=== PATIENT | male | born 1980 | race Caucasian/White ===

== ENCOUNTER 2017-01-22 14:57 | Emergency (ER) | payer OTHER ==
[~2017-01-22] VITALS: Ht 182.9 cm; Wt 74.8 kg
[~2017-01-22 14:57] MED LIST: ACETAMINOPHEN500 M1; AZITHROMYCIN250 MG PO; CLEOCIN HCL150 MG PO; CLEOCIN HCL300 MG PO; COMBIVENT RESPIM4 GM INH; ENDOCET 325 MG-1 TA1 PO; GOOD SENSE IBU200 MG PO; MOBIC 15MG15 MG PO; PERCOCET 325 MG1 TA2 PO; PERCOCET 325 MG1 TA3 PO; PROAIR HFA8.5 GM INH
[2017-01-22 15:01] VITALS: BP 138/90
--- NOTE | 2017-01-22 15:05 | ED THROAT/DENTAL COMPLAINT ---
History of Present Illness General Chief Complaint: Sore Throat, Dental Pain Stated Complaint: DENTAL PAIN Source: patient, old records Exam Limitations: no limitations Vital Signs & Intake/Output Vital Signs & Intake/Output Vital Signs Date Time Temp Pulse Resp B/P B/P Pulse O2 O2 Flow FiO2 Mean Ox Delivery Rate 01/22 1501 97.0 68 16 138/90 98 Room Air Allergies Coded Allergies: Penicillins (Severe, ANAPHALACTIC 07/30/16) Reconcile Medications Albuterol Sulfate (Proair Hfa) 0.09 MG/Actuation MARCOS 2 PUFF INH PRN COPD ( Reported) Azithromycin 250 MG TABLET 1 DP PO AD DENTAL (Reported) 2 the first day followed by 1 for days 2-5 Clindamycin HCl 300 MG CAPSULE 1 CAP PO TID dental CLINDAMYCIN HCL (Cleocin HCl) 300 MG CAPSULE 1 TAB PO TID TOOTH EXTRACTION Ibuprofen 800 MG TABLET 1 TAB PO TID PRN pain IPRATROPIUM/ALBUTEROL SULFATE (Combivent Respimat Inhal [place]) 20 MCG-100 MCG/ ACTUATION MIST.INHAL 1 PUFF INH 4 TIMES/DAY COPD (Reported) OXYCODONE HCL/ACETAMINOPHEN (Percocet 5-325 MG Tablet) 325 MG/5 MG TAB 1-2 TAB PO Q4-6 PRN PRN PAIN (Reported) Oxycodone HCl/Acetaminophen (Percocet 5-325 MG Tablet) 5 MG-325 MG TABLET 1 TAB PO BID PRN pain OXYCODONE HCL/ACETAMINOPHEN (Percocet 7.5-325 MG Tablet) 325 MG/7.5 MG TAB 1 TAB PO BID PAIN Triage Note: PT STATES HE BROKE A TOOTH ABND HAS DENTAL PAIN. PT STATES SHE HERE FOR PAIN MED TO GET HIM THROUGH TO SEE THE ORAL SURGEON. Triage Nurses Notes Reviewed? yes Onset: Abrupt Duration: day(s): (2), constant Timing: recent history Injury Environment: home Severity: moderate, severe Severity Numbers: 10 Modifying Factors: Worsens With: eating. HPI: 36-year-old male presents to ER for evaluation complaining of left upper dental pain sharp severe after he states he cracked a tooth last night. He has not taken anything for his symptoms however called an oral surgeon yesterday and has an appointment scheduled for . He denies any fever chills pain is worse with palpation eating better with ice. No modifying factors or associated symptoms otherwise (RAIN BUSCH) Past History Travel History Traveled to [place] past 21 day No Medical History Any Pertinent Medical History? 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 No (RAIN BUSCH) Review of Systems Review of Systems Constitutional: Reports: see HPI. All Other Systems: Reviewed and Negative Comments Review of systems: See HPI, All other systems negative. Constitutional, no chills no fever, no malaise no weight loss HEENT: No visual changes no sore throat no congestion, no ear pain Cardiovascular: No chest pain , no palpitation , no orthopnea Skin: no rashes, no change in skin Respiratory: No dyspnea no cough no sputum no hemoptysis GI: No nausea no vomiting, no diarrhea, no bloating/constipation : No dysuria No hematuria, no frequency, no discharge Muscle skeletal: No joint pain, no joint swelling, no back pain, no neck pain, Neurologic: No numbness no confusion, no headache Psych: No stress no depression,. Heme/endocrine: No bruising no bleeding Immunology: No lymphadenopathy (RAIN BUSCH) Physical Exam Physical Exam General Appearance: well developed/nourished, no apparent distress, alert, awake Mouth/Throat: pharynx normal Comments: Well-developed well-nourished patient in no apparent distress. Head/Face: Atraumatic, no maxillary/frontal sinus tenderness, no facial swelling Eyes: PERRL, EOMI, Ear:External auditory canals clear, no erythema, no FB. Nose: atraumatic.Normal inspection: No bleeding, no septal hematoma Throat: Poor dentition multiple carious teeth cracked left upper tender no gingival abscess Moist mucous membranes.Pharynx normal. No pharyngeal erythema/ exudate seen. No stridor/drooling or assymetry. No swelling or edema. Neck: Supple, no lymphadenopathy, FROM Back: FROM Cardiovascular: Regular rate and rhythms no murmurs Respiratory: No respiratory distress. Patient speaking in full complete sentences. Breath sounds clear to auscultation bilaterally: NO W/R/R Extremities: full range of motion Neuro: awake, alert, and oriented to person, place and time. There were no obvious focal neurologic abnormalities. Skin: Warm & dry;No appreciable rash on exposed skin Psych: Mood affect normal, normal memory normal judgment. Core Measures ACS in differential dx? No Severe Sepsis Present: No Septic Shock Present: No (RAIN BUSCH) Progress Differential Diagnosis: carious tooth, epiglottitis, Ludwigs angina, odontogenic abscess, jody-tonsillar abscess, pharyngeal for. body, strep pharyngitis, tooth fracture Plan of Care: Current Medications Sig/Gill Start time Last Medication Dose Stop Time Status Admin Clindamycin 300 MG ONCE ONE 01/22 1515 UNVr (Cleocin 150MG Cap) 01/23 1516 Oxycodone/ 1 TAB ONCE ONE 01/22 1515 UNVr Acetaminophen 01/23 1516 (Percocet) I had an extensive conversation regarding need for close follow up with their primary care physician this week as well as return precautions. I answered all of their questions, they feel comfortable with the plan and follow-up care. I discussed the medications that they will receive with the patient. I gave them signs and symptoms that could indicate an adverse reaction. I have advised them to limit their activities until they can see how they respond to the medication. (RAIN BUSCH) Departure Departure Time of Disposition: 1511 Disposition: HOME OR SELF CARE Condition: Stable Clinical Impression Primary Impression: Pain, dental Referrals: ROBBIE HERNANDEZ APRN (PCP/Family) Additional Instructions: Follow-up with your oral surgeon on as scheduled. Clindamycin as directed. Ibuprofen 800 mg every 8 hours, Percocet for breakthrough pain use caution as this is a narcotic no driving or drinking alcohol while taking this will make you drowsy. Return with any concerns. These were sent to [facility] Departure Forms: Customer Survey General Discharge Information Prescriptions: Current Visit Scripts Ibuprofen 1 TAB PO TID PRN pain #30 TAB Oxycodone HCl/Acetaminophen (Percocet 5-325 MG Tablet) 1 TAB PO BID PRN pain #10 TAB Clindamycin HCl 1 CAP PO TID #21 CAP (RAIN BUSCH) PA/NEUROLOGY PHYSICIAN Co-Sign Statement Statement: ED Attending supervision documentation- [] I saw and evaluated the patient. I have also reviewed all the pertinent lab results and diagnostic results. I agree with the findings and the plan of care as documented in the PA's/NEUROLOGY PHYSICIAN's documentation. [X] I have reviewed the ED Record and agree with the PA's/NEUROLOGY PHYSICIAN's documentation. [] Additions or exceptions (if any) to the PAs/NEUROLOGY PHYSICIAN's note and plan are summarized below: [] (MESERET ZHOU,SARAH Dixon)
[2017-01-22] MEDS ORDERED: CLINDAMYCIN HC300 M1 PO (15:14)
[2017-01-22] MEDS ORDERED: PERCOCET 5-3251 EACH PO (15:14)
[2017-01-22] MEDS ORDERED: IBUPROFEN800 M1 PO (15:14)
[2017-01-23] MEDS ORDERED: PERCOCET 5-3251 EACH PO (13:20)
[2017-01-23] MEDS ORDERED: MOBIC15 M1 PO (13:20)
== END 2017-01-22 15:40 ==
LOC: ERH 14:57
DX: K08.89 Other specified disorders of teeth and supporting structures (principal)

== ENCOUNTER 2017-01-23 11:53 | Emergency (ER) | payer OTHER ==
[~2017-01-23] VITALS: Ht 182.9 cm; Wt 74.8 kg
[~2017-01-23 11:53] MED LIST changes: +CLINDAMYCIN HC300 M1 PO; +IBUPROFEN800 M1 PO; +PERCOCET 5-3251 EACH PO
[2017-01-23 12:04] VITALS: BP 154/87
--- NOTE | 2017-01-23 12:35 | ED GENERAL ADULT ---
History of Present Illness General Chief Complaint: General Adult Stated Complaint: NEW MEDICATION NOT WORKING Source: patient Exam Limitations: no limitations Vital Signs & Intake/Output Vital Signs & Intake/Output Vital Signs Date Time Temp Pulse Resp B/P B/P Pulse O2 O2 Flow FiO2 Mean Ox Delivery Rate 01/23 1204 97.9 71 16 154/87 97 Room Air Allergies Coded Allergies: Penicillins (Severe, ANAPHALACTIC 07/30/16) Reconcile Medications Albuterol Sulfate (Proair Hfa) 90 MCG HFA.AER.AD 2 PUF INH Q4-6 PRN PRN SHORTNESS OF BREATH (Reported) Clindamycin HCl 300 MG CAPSULE 1 CAP PO TID dental Ibuprofen 800 MG TABLET 1 TAB PO TID PRN pain Ipratropium/Albuterol Sulfate (Combivent Respimat Inhal [place]) 20 MCG-100 MCG/ ACTUATION MIST.INHAL 1 PUFF INH 4 TIMES/DAY SHORTNESS OF BREATH (Reported) Meloxicam (Mobic) 15 MG TABLET 1 TAB PO DAILY PRN pain Oxycodone HCl/Acetaminophen (Percocet 5-325 MG Tablet) 5 MG-325 MG TABLET 1 TAB PO BID PRN pain Oxycodone HCl/Acetaminophen (Percocet 5-325 MG Tablet) 5 MG-325 MG TABLET 1 TAB PO BID PRN pain Triage Note: 36 Y/O MALE C/O CONTINUED DENTAL PAIN; HAS WRITTEN PRESCRIPTIONS FROM DENTIST BUT STATES THEY WERE NOT ABLE TO BE FILLED DUE TO ? BRISSA NUMBER. PT ALSO EVAL'D IN ED LAST NIGHT FOR SAME; STATES THE MEDS HE WAS GIVEN ARE NOT WORKING. TOOK 2 TABS IBUPROPHEN AND 2 PERCOCETS THIS AM WITH NO RELIEF. Triage Nurses Notes Reviewed? yes Onset: Abrupt Duration: day(s): Timing: recent history HPI: 01/23/17 1:17 pm 36-year-old male presents to the emergency department for severe unrelenting left-sided toothache. The patient has dental caries to the upper molar, no fever, no abscess. He's been taking Percocet and clindamycin with minimal relief. He is awaiting follow-up with his oral surgeon this week The onset symptoms were abrupt, the duration has been days, the severity is significant; as his symptoms required him to come to the emergency department for care. Past History Travel History Traveled to [place] past 21 day No Medical History Any Pertinent Medical History? 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 No Review of Systems Review of Systems Constitutional: Reports: no symptoms. EENTM: Reports: see HPI. Respiratory: Denies: short of breath. Cardiovascular: Denies: chest pain. GI: Denies: abdominal pain. Genitourinary: Reports: no symptoms. Musculoskeletal: Reports: no symptoms. Skin: Reports: no symptoms. Neurological/Psychological: Reports: no symptoms. Hematologic/Endocrine: Reports: no symptoms. Immunologic/Allergic: Reports: no symptoms. Physical Exam Physical Exam General Appearance: alert, awake, anxious, mild distress Head: atraumatic Eyes: Bilateral: normal appearance, PERRL, EOMI. Ears, Nose, Throat: normal pharynx Neck: normal inspection, supple Respiratory: normal breath sounds, chest non-tender, no respiratory distress Cardiovascular: regular rate/rhythm Back: normal range of motion Extremities: normal inspection, normal range of motion, no edema Neurologic/Psych: no motor/sensory deficits, awake, alert, oriented x 3 Skin: intact, normal color, warm/dry Comments: Patient did have severe dental caries in his left upper molar. Core Measures ACS in differential dx? No CVA/TIA Diagnosis: No Severe Sepsis Present: No Septic Shock Present: No Progress Differential Diagnoses I considered the following diagnoses in my evaluation of the patient: [Zafar angina, dental abscess, dental caries, temporomandibular joint syndrome] Plan of Care: follow up with the oral surgeon this week Initial ED EKG: none Departure Departure Disposition: HOME OR SELF CARE Condition: Stable Clinical Impression Primary Impression: Toothache Referrals: ROBBIE HERNANDEZ APRN (PCP/Family) Departure Forms: Customer Survey General Discharge Information Prescriptions: Current Visit Scripts Meloxicam (Mobic) 1 TAB PO DAILY PRN pain #10 TAB Oxycodone HCl/Acetaminophen (Percocet 5-325 MG Tablet) 1 TAB PO BID PRN pain #6 TAB Critical Care Note Critical Care Note Critical Care Time: non-applicable
[2017-01-23] MEDS ORDERED: MOBIC15 M1 PO (13:20)
[2017-01-23] MEDS ORDERED: PERCOCET 5-3251 EACH PO (13:20)
== END 2017-01-23 13:40 ==
LOC: ERH 11:53
DX: K08.89 Other specified disorders of teeth and supporting structures (principal)